=== PATIENT | male | born 1990 | race Caucasian/White ===

== ENCOUNTER → 2022-10-17 16:11 | Outpatient (CLI) | payer OTHER, SELFPAY ==
--- NOTE | ~2022-10-17 | XR_ITS ---
EXAMINATION: XR chest 2V Exam Date/Time: 10/17/2022 16:13 RED CROSS EXECUTIVE DIRECTOR HISTORY: R07.9 - Chest pain, unspecified Comparison: None available. RESULT: Lines, tubes, and devices: None. Lungs and pleura: Mild diffuse reticulonodular opacities in the lower lungs. Calcified left upper lo be granuloma. Cardiomediastinal silhouette: Stable. Other: No acute osseous or upper abdominal finding. IMPRESSION: Pulmonary opacities may represent bronchiolitis, as can be seen with atypical infection, asthma, aspi ration, and small airways disease. Reviewed, dictated and finalized at location K. CROSS EXECUTIVE DIRECTOR IMPRESSION: Pulmonary opacities may represent bronchiolitis, as can be seen with atypical i nfection, asthma, aspiration, and small airways disease.
== END ==
PROVIDERS: PCP Physician Assistant; Visit Provider Physician Assistant
DX: R07.9 Chest pain, unspecified (principal); R91.8 Other nonspecific abnormal finding of lung field
CPT/HCPCS: 71046

== ENCOUNTER 2022-10-24 15:15 | Outpatient (CLI) | payer OTHER, SELFPAY ==
[2022-10-24 16:56] LABS: Basophils Absolute Auto 0.1 K/mm3 (0.0-0.1); Basophils Percent Auto 0.5 % (0.2-1.2); Eosinophils Absolute Auto 0.2 K/mm3 (0-0.3); Eosinophils Percent Auto 1.7 % (0-4.4); Hematocrit 40.6 % (42.0-52.0); Hemoglobin 12.8 g/dL (14.0-18.0); Immature Granulocyte Absolute 0.03 K/mm3 (0.00-0.031); Immature Granulocyte Percent A 0.3 % (0-0.5); Lymphocytes Absolute Auto 3.07 K/mm3 (0.9-3.2); Lymphocytes Percent Auto 32.5 % (18.3-44.2); Mean Corpuscular HGB Conc 31.5 g/dl (32-36); Mean Corpuscular Hemoglobin 26.9 pg (26-34); Mean Corpuscular Volume 85.3 fl (80-100); Mean Platelet Volume 9.1 fl (7.4-10.4); Monocytes Absolute Auto 0.7 K/mm3 (0.1-0.6); Neutrophils Absolute Auto 5.5 K/mm3 (1.3-6.7); Platelet Count Result 266 k/mm3 (150-375); Red Blood Count 4.76 M/mm3 (4.6-6.20); Red Cell Distribution Width 13.5 % (11.5-14.5); White Blood Count 9.5 K/mm3 (4.5-10.0)
[2022-10-24 17:14] LABS: Alanine Aminotransferase 23 U/L (6-50); Albumin Level 4.1 g/dL (3.5-5.1); Alkaline Phosphatase 77 U/L (38-126); Anion Gap 5 mmol/L (8-16); Aspartate Amino Transferase 51 U/L (17-59); Bilirubin,Total 0.7 mg/dL (0.2-1.3); Blood Urea Nitrogen 15 mg/dL (9-20); Calcium 8.8 mg/dL (8.4-10.2); Carbon Dioxide 30 mmol/L (22-30); Chloride 104 mmol/L (98-107); Cholesterol 170 mg/dL (0-200); Estimated Glomerular Filt Rate > 60; Glucose 81 mg/dL (65-110); HDL Direct 48 mg/dL; Potassium 3.7 mmol/L (3.4-5.0); Sodium 139 mmol/L (137-145); Triglycerides 132 mg/dL (<150)
[2022-10-24 17:25] LABS: LDL Cholesterol Direct 83 mg/dL
== END 2022-10-24 15:16 | disposition home or self-care (01) ==
LOC: ANHGOSHLAB 15:17
PROVIDERS: PCP Physician Assistant; Visit Provider Physician Assistant
DX: R07.9 Chest pain, unspecified (principal); E66.01 Morbid (severe) obesity due to excess calories; Z82.49 Family history of ischemic heart disease and other diseases of the circulatory system
CPT/HCPCS: 36415; 80053; 80061; 84443; 85025

== ENCOUNTER 2022-11-02 09:32 | Outpatient (CLI) | payer OTHER, SELFPAY ==
--- NOTE | 2022-11-02 10:54 | EST_ITS ---
Patient Info Name: Imtiaz Rasmussen Age: 31 years : 1990 Gender: Male Ht: 72 in Wt: 310 lbs BSA: 2.73 m2 HR: 63 bpm BP: 148 / 78 mmHg Heart Rhythm: Sinus Rhythm Exam Date: 11/02/2022 10:24 AM Exam Location: [facility] Stress Patient Status: Outpatient Admit Date: 11/02/2022 Staff Ordering Physician: Cameron Ojeda PA-C Data Services Developer: Sonny Washington RDCS, RT Attending Provider: Cameron Ojeda PA-C Exercise Technologist: Lynsey Reddy CT Exercise Physician: Feliciano Schultz DO Exam Type: CA stress echo Study Info Indications E66.01 - Morbid (severe) obesity due to excess calories Treadmill exercise stress echocardiogram is performed. Summary 1. 1. Negative Gerardo exercise stress test for ischemic ST changes by ECG criteria. 2. 2. Reduced functional capacity, achieving 7 METs of workload. 3. 3. Appropriate HR response to exercise. 4. 4. Appropriate HR recovery at 1 minute post exercise. 5. 5. Negative stress echocardiogram for ischemia by wall motion analysis. 6. 6. Patient informed of the above results. Stress Echo Findings Left Ventricle Appropriate increase in LV endocardial thickening with systole. Appropriate augmentation of contractility with systole. No wall motion abnormality. Left Ventricle Normal LV systolic function, no wall motion abnormality. Protocol: Gerardo Rest HR: 63 bpm Peak HR: 185 bpm Rest Sys BP: 148 mmHg Peak Sys BP: 219 mmHg Max Pred HR: 191 bpm % Max Pred HR: 97 % Target HR: 162 bpm Max RPP: 40,515 bpm*mmHg Termination Reason: Reached target heart rate or workload Cardiac Symptoms: Shortness of breath Total Time: 6 min : 3 sec Rest Subramanian BP: 78 mmHg Peak Subramanian BP: 95 mmHg Total METS: 7.1 Resting ECG Sinus rhythm. Stress ECG No ST changes. Arrhythmias None. Report Signatures Stress ECG Echo
== END 2022-11-02 09:33 | disposition home or self-care (01) ==
PROVIDERS: PCP Physician Assistant; Visit Provider Physician Assistant
DX: R07.9 Chest pain, unspecified (principal); E66.01 Morbid (severe) obesity due to excess calories; Z82.49 Family history of ischemic heart disease and other diseases of the circulatory system
CPT/HCPCS: 93351

== ENCOUNTER 2024-06-17 17:23 | Emergency (ER) | payer OTHER, SELFPAY ==
--- NOTE | ~2024-06-17 | XR_ITS ---
EXAMINATION: XR chest 2V Exam Date/Time: 06/17/2024 17:43 CDT HISTORY: cp Comparison: 10/17/2022. RESULT: Lines, tubes, and devices: None. Lungs and pleura: Clear. Scattered granulomas calcifications. Cardiomediastinal silhouette: Stable. Other: No acute osseous or upper abdominal finding. IMPRESSION: No acute cardiopulmonary process. Reviewed, dictated and finalized at location K.
--- NOTE | 2024-06-17 17:25 | ECG_ITS ---
Test Date: 2024-06-17 17:31:00 Measurements Intervals [place] Rate: 96 P: 50 MT: 150 QRS: 13 QRSD: 87 T: -6 QT: 336 QTc: 426 Interpretive Statements SINUS RHYTHM NONSPECIFIC ST-T WAVE ABNORMALITY- ANTEROLAT/INF LEADS BORDERLINE ECG No previous ECG available for comparison Electronically Signed On 06-17-2024 20:03:21 CDT by Feliciano Schultz D.O.
[2024-06-17 17:28] VITALS: BP 175/104; PULSE 83; RESP 18; TEMP 36.9; O2SAT 99
[2024-06-17] MEDS: ASPIRIN 81 MG CHEWABLE TABLET 324 MG PO (17:34)
[2024-06-17 17:45] LABS: Basophils Percent Auto 0.2 % (0.2-1.2); Eosinophils Absolute Auto 0.1 K/mm3 (0-0.3); Eosinophils Percent Auto 0.7 % (0-4.4); Hematocrit 43.4 % (42.0-52.0); Immature Granulocyte Absolute 0.01 K/mm3 (0.00-0.031); Immature Granulocyte Percent A 0.1 % (0-0.5); Lymphocytes Absolute Auto 2.09 K/mm3 (0.9-3.2); Lymphocytes Percent Auto 25.3 % (18.3-44.2); Mean Corpuscular HGB Conc 32.3 g/dl (32-36); Mean Corpuscular Hemoglobin 28.4 pg (26-34); Monocytes Absolute Auto 0.6 K/mm3 (0.1-0.6); Monocytes Percent Auto 6.8 % (2.6-8.5); Neutrophils Absolute Auto 5.5 K/mm3 (1.3-6.7); Neutrophils Percent Auto 66.9 % (45.5-73.1); Platelet Count Result 229 k/mm3 (150-375); Red Blood Count 4.93 M/mm3 (4.6-6.20); Red Cell Distribution Width 13.3 % (11.5-14.5); White Blood Count 8.3 K/mm3 (4.5-10.0)
[2024-06-17 17:55] LABS: Prothrombin Time 13.5 Seconds (11.1-14.7)
[2024-06-17 17:56] LABS: Alanine Aminotransferase 34 U/L (6-50); Albumin Level 4.5 g/dL (3.5-5.1); Alkaline Phosphatase 104 U/L (38-126); Anion Gap 11 mmol/L (4-12); Aspartate Amino Transferase 37 U/L (17-59); Bilirubin,Total 0.8 mg/dL (0.2-1.3); Blood Urea Nitrogen 14 mg/dL (9-20); Calcium 9.2 mg/dL (8.4-10.2); Carbon Dioxide 26 mmol/L (22-30); Chloride 101 mmol/L (98-107); Estimated CRCL calculation 135 ml/min; Estimated Glomerular Filt Rate > 60; Glucose 103 mg/dL (65-110); Lipase 47 U/L (23-300); Partial Thromboplastin Time 30.1 Seconds (22.3-36.8); Potassium 3.9 mmol/L (3.4-5.0); Sodium 138 mmol/L (137-145)
[2024-06-17 18:07] LABS: Troponin I < 0.012 ng/mL (0.000-0.034)
--- NOTE | 2024-06-17 22:06 | ECG_ITS ---
Test Date: 2024-06-17 22:17:42 Measurements Intervals [place] Rate: 69 P: 58 GA: 129 QRS: 13 QRSD: 89 T: 14 QT: 357 QTc: 385 Interpretive Statements SINUS RHYTHM WITH ATRIAL PREMATURE COMPLEX EARLY PRECORDIAL R/S TRANSITION NONSPECIFIC T-WAVE ABNORMALITY- ANT/INF LEADS BASELINE ARTIFACT- I, II, III, AVR, AVL, V1-V2 BORDERLINE ECG Compared to ECG 06/17/2024 17:31:00 NO SIGNIFICANT CHANGE Electronically Signed On 06-18-2024 05:41:07 CDT by Feliciano Schultz D.O.
[2024-06-17 22:15] VITALS: PULSE 87
[2024-06-17 22:16] VITALS: BP 134/92; PULSE 79; RESP 20; TEMP 36.6; O2SAT 100
[2024-06-17 22:17] VITALS: O2SAT 100
[2024-06-17 22:18] VITALS: O2SAT 100
--- NOTE | 2024-06-17 22:37 | ED.CHESTPAIN ---
HPI - Chest Pain General Chief Complaint: Chest Pain Stated Complaint: cp Time Seen by Provider: 06/17/24 22:10 Source: patient Mode of arrival: ambulatory Limitations: no limitations History of Present Illness HPI narrative: This is a 33-year-old male that presents to the emergency department for chest pain. Ongoing intermittently over the last couple of days. Reports that originally started in his right upper chest and back. When he woke up today he was experiencing it on the left side. His pain is worse with breathing. Reports he felt as though he was short of breath. Denies fever, cough, lower extremity edema. Related Data Allergies Allergy/AdvReac Type Severity Reaction Status Date / Time No Known Allergies Allergy Verified 06/17/24 17:24 Review of Systems Review of Systems: CONSTITUTIONAL: Denies fever CARDIOVASCULAR: Reports chest pain RESPIRATORY: Reports dyspnea. All systems reviewed & are unremarkable except as noted in HPI and below PMFSH Past Medical History Medical History (Updated 06/17/24 @ 23:04 by Aiyana Hall PA-C) Morbid obesity Surgical History Surgical History History of tonsillectomy (~2009) [place] teeth extracted (~2017) Family History Family History Father , Heart failure Acute myocardial infarction Heart disease Hypertension Diabetes mellitus Depression Sibling Hypertension Social History Social History Smoking status: Current some day smoker Tobacco type: pipe and cigars Second hand tobacco smoke exposure: Yes Alcohol intake: current Substance use type: does not use Lack of Transportation: No Lack of Food: Never True Current Housing: I Have Housing Concerned About Future Housing: No Difficulty Paying Gas/Electric Bills: No Difficulty Paying for Meds: No Currently Unemployed: No Education: Associate Degree Difficulty w/ Childcare or Family Care: No Living arrangements: with family Gender identity (if verbalized by the patient): Male Exam Narrative: GENERAL: Well-appearing, well-nourished, and in no acute distress. HEAD: Normocephalic, atraumatic. EYES: EOMI. CHEST: Clear to auscultation. No respiratory distress. No wheezes rales or rhonchi HEART: Regular rate and rhythm. No murmur heard. Normal peripheral pulses. EXTREMITIES: Normal range of motion. No edema. SKIN: Warm, dry, no rash. NEURO: No focal deficits. Alert and oriented x3. PSYCH: Normal mood and affect Course Course Emergency Course: patient updated on his workup and agrees with plan of care Vital Signs Vital signs: Vital Signs Temperature 98.4 F 06/17/24 17:28 Pulse Rate 83 06/17/24 17:28 Respiratory Rate 18 06/17/24 17:28 Blood Pressure 175/104 H 06/17/24 17:28 Pulse Oximetry 99 06/17/24 17:28 Oxygen Delivery Room Air 06/17/24 17:28 Temperature 97.8 F 06/17/24 22:16 Pulse Rate 79 06/17/24 22:16 Respiratory Rate 20 06/17/24 22:16 Blood Pressure 134/92 H 06/17/24 22:16 Pulse Oximetry 100 06/17/24 22:18 Oxygen Delivery Room Air 06/17/24 22:18 MDM - Chest Pain MDM Narrative Medical decision making narrative: patient presents to the emergency department for chest pain ongoing over the last couple of days. Patient hypertensive upon arrival, this down trended without intervention. Other vitals are normal. CBC metabolic panel without concerning findings. EKG without acute changes and baseline and 3 hour troponin are negative. Chest x-ray without acute cardiopulmonary abnormality. D-dimer is not elevated. Patient updated on workup and agrees with plan of care. Instructed to have follow-up with primary provider for further evaluation. He was given warnings to return to the ER Differential Diagnosis Differential diagnosis:
[2024-06-17 22:39] LABS: D Dimer < 0.27 ug/mL (<0.48)
[2024-06-17 22:43] LABS: Troponin I < 0.012 ng/mL (0.000-0.034)
== END 2024-06-17 23:19 | disposition home or self-care (01) ==
LOC: ANHED 23:10
PROVIDERS: Emergency Medicine; Emergency Provider Physician Assistant; PCP Family Medicine
DX: R07.9 Chest pain, unspecified (principal); E66.01 Morbid (severe) obesity due to excess calories; Z68.41 Body mass index [BMI] 40.0-44.9, adult; F17.290 Nicotine dependence, other tobacco product, uncomplicated; R94.31 Abnormal electrocardiogram [ECG] [EKG]; I49.1 Atrial premature depolarization
CPT/HCPCS: 36415; 71046; 80053; 83690; 84484; 85025; 85380; 85610; 85730; 93005; 99284; A9270